=== PATIENT | male | born 1960 | race Caucasian/White ===

== ENCOUNTER 2019-05-19 16:55 | Emergency (ER) | payer OTHER ==
[2019-05-19] MEDS ORDERED: Morphine 4 MG/ML VIAL (1 ml) 4 MG/ML VIAL IV ONE ×2 (17:59→20:24)
[2019-05-19] MEDS ORDERED: Tetan/Diph/Pertus SYR(Tdap)* 0.5 ML SYR(BOOSTRIX) use SYR IM ONE (18:11)
--- NOTE | 2019-05-19 18:12 | ED ---
Adult Trauma - HPI Summary HPI Summary: 59-year-old male presents after fall today. He was doing tree work. He states he fell off a ladder 5 feet and landed on his right ribs and shoulder. He states he got up and bumped his head on a door while ambulating into the house. He states has pain over right pectoral muscle. Denies any bowel pain. No neck pain. He states after he fell and got up and ended up hitting his head on door frame. Denies any loss consciousness. Denies any headache. no abdominal pain. He has abrasions noted to the knees and ankles. No knee or ankle pain. No other symptoms. He is a smoker. has no medical conditions - History of Current Complaint Chief Complaint: EDTraumaMultiple Stated Complaint: FALL PER EMS Time Seen by Provider: 05/19/19 17:33 Pain Intensity: 7 - Allergy/Home Medications Allergies/Adverse Reactions: Allergies Allergy/AdvReac Type Severity Reaction Status Date / Time No Known Allergies Allergy Verified 05/19/19 17:07 Home Medications: Home Medications NK [No Home Medications Reported] 05/19/19 [History Confirmed 05/19/19] PMH/Surg Hx/FS Hx/Imm Hx Endocrine/Hematology History: Denies: Hx Anticoagulant Therapy Cardiovascular History: Denies: Hx Myocardial Infarction Infectious Disease History: No Infectious Disease History: Denies: Traveled Outside the [place] in Last 30 Days - Family History Known Family History: Positive: Non-Contributory - Social History Alcohol Use: Occasionally Substance Use Type: Reports: None Smoking Status (MU): Current Some Day Smoker Review of Systems Negative: Fever Positive: Chest Pain Positive: Shortness Of Breath. Negative: Cough Negative: Abdominal Pain Positive: Myalgia - right shoulder pain All Other Systems Reviewed And Are Negative: Yes Physical Exam Triage Information Reviewed: Yes Vital Signs On Initial Exam: Initial Vitals Temp Pulse Resp BP Pulse Ox 97.4 F 66 34 167/106 96 05/19/19 16:58 05/19/19 16:58 05/19/19 16:58 05/19/19 16:58 05/19/19 16:58 Vital Signs Reviewed: Yes Appearance: Positive: Well-Appearing Skin: Positive: Warm, Dry, Other - multiple abrasions to knee and ankle Head/Face: Positive: Normal Head/Face Inspection Eyes: Positive: Normal, EOMI, YIN, Conjunctiva Clear ENT: Positive: Pharynx normal, TMs normal Respiratory/Lung Sounds: Positive: Breath Sounds Present, Other - tenderness right ribs, no flail chest Cardiovascular: Positive: Normal, RRR Abdomen Description: Positive: Nontender, Soft Bowel Sounds: Positive: Present Musculoskeletal: Positive: Limited @ - right arm, Other - tenderness over right shoulder and ribs, good pulses, nontender knees and ankle, nontender hip Neurological: Positive: Normal, Sensory/Motor Intact, Alert, Oriented to Person Place, Time, CN Intact II-III Psychiatric: Positive: Normal Procedures - Laceration/Wound Repair 1 Location: Other - right leg Description: Linear Length, Depth and Shape: 2 parallel laceration 3cm by 1/4cm Irrigated w/ Saline (ccs): 300 Suture Type: Prolene Number of Sutures: 3 Diagnostics - Vital Signs Vital Signs Temp Pulse Resp BP Pulse Ox 05/19/19 17:00 70 22 96 05/19/19 16:59 67 23 167/106 96 05/19/19 16:58 97.4 F 65 31 167/106 96 - Laboratory Result Diagrams: 05/19/19 18:05 05/19/19 18:04 Lab Statement: Any lab studies that have been ordered have been reviewed, and results considered in the medical decision making process. - Radiology shoulder Radiology Interpretation Completed By: ED Physician Summary of Radiographic Findings: scapula fracture - CT brain CT Interpretation Completed By: Radiologist Summary of CT Findings: IMPRESSION: 1. There is likely chronic left maxillary sinusitis. 2. There is age-related diffuse cerebral and cerebellar volume loss and chronic. microvascular ischemic disease. 3. No acute intracranial pathology. neck CT Interpretation Completed By: Radiologist Summary of CT Findings: IMPRESSION: 1. Findings in the upper chest including rib fractures and right clavicle and. scapular fractures and soft tissue emphysema of the right chest wall it extends. into the base of the right neck are described on the CT chest dictation of the. same day. 2. No acute cervical spine fracture. chest, abd CT Interpretation Completed By: Radiologist Summary of CT Findings: IMPRESSION: 1. There are acute fractures involving the right clavicle, body of the right. scapula, right first, second, third, fourth , fifth, sixth, seventh, eighth,. ninth ribs. 2. There is a small anterior pneumothorax extending from the right apex of the. right base occupying approximately 5-10% of the volume of the right hemithorax. without signs of tension pneumothorax. 3. There is small hemothorax on the right. There is bibasilar and bilateral. dependent atelectatic change or scarring but cannot exclude dependent pulmonary. contusions. - EKG No standard instances Cardiac Rate: NL EKG Rhythm: Sinus Rhythm Summary of EKG Findings: sinus rhythm Re-Evaluation - Re-Evaluation First Eval Re-Evaluation Time: 19:10 Comment: denies any sob, o2 stat 99 Adult Trauma Course/Dx - Course Course Of Treatment: 59-year-old male presents after fall today. He states he fell off a ladder 5 feet and landed on his right ribs and shoulder. no headache or neck pain. Denies any loss consciousness. He has abrasions noted to the knees and ankles. states can not take a deep breath due to pain but denies any sob. on exam equal breath sounds. tenderness over right shoulder and ribs. no flail chest. vitals stable. ekg sinus rhythm. nontender abd. nontender neck. normal neuro exam. xray shows scaupla fracture. CT brain normal. CT neck shows no acute findings. CT chest shows rib fracture 1-9, scapula fracture, small pneumothoraic, hemothorax. spoke with josé luis who recommends chest tube and accepts for transfer. discussed with dr arnold who will do chest tube. ambulance service called and said cannot transfer with chest tube unless nursing available and we do not have nurse available at this time so will have to transfer without such. - Diagnoses Differential Diagnosis/HQI/PQRI: Positive: Abrasion(s), Contusion(s), Fracture Provider Diagnoses: Right scapula fracture, Ribs, multiple fractures, Pneumothorax, Hemothorax, Clavicle fracture, Laceration of right lower leg - Critical Care Time Critical Care Time: 30-74 min - 60 mins Discharge - Sign-Out/Discharge Documenting (check all that apply): Patient Departure - Discharge Plan Condition: Stable Disposition: TRANS HIGHER LVL OF CARE FAC Referrals: No Primary Care Phys,NOPCP [Primary Care Provider] - - Billing Disposition and Condition Condition: STABLE Disposition: Trans Higher Lvl of Care Fac
[2019-05-19] MEDS ORDERED: Ondansetron INJ* 2 MG/ML VIAL IV ONE (18:16)
[2019-05-19 18:27] LABS: ABS Lymphocytes 1.6 10^3/ul (1.0-4.8); ABS Monocytes 1.3 10^3/ul (0-0.8); ABS Neutrophils 16.9 10^3/ul (1.5-7.7); Eosinophil % 0.2 %; Hematocrit 46 % (42-52); Hemoglobin 15.5 g/dL (14.0-18.0); Lymphocyte % 8.1 %; Mean Corpuscular HGB Conc 34 g/dL (31-36); Mean Corpuscular Hemoglobin 32 pg (27-31); Mean Corpuscular Volume 95 fL (80-94); Platelet Count 231 10^3/uL (150-450); Red Blood Count 4.81 10^6 /uL (4.18-5.48); Red Cell Distribution Width 14 % (10-15); White Blood Count 19.9 10^3/uL (3.5-10.8)
[2019-05-19] MEDS ORDERED: Iodixanol* (CONTRAST) 320 MG/ML 100 ML SDV IV ONE (18:35)
[2019-05-19 18:43] LABS: Albumin 4.4 g/dL (3.2-5.2); Albumin/Globulin Ratio 1.5 (1-3); BUN/Creatinine Ratio 22.9 (8-20); Calcium 9.3 mg/dL (8.6-10.3); EGFR African American 87.2 (>60); Globulin 2.9 g/dL (2-4); Total Bilirubin 0.4 mg/dL (0.2-1.0); Total Protein 7.3 g/dL (6.4-8.9)
[2019-05-19] MEDS ORDERED: NS 0.9% 1000 ML** 1,000 ML IV ONE (18:49)
[2019-05-19 19:02] LABS: Potassium 3.8 mmol/L (3.5-5.0)
[2019-05-19] MEDS ORDERED: Lidocaine 1% MPF ** 5 ML VIAL ONE (19:56)
[2019-05-19] MEDS ORDERED: HYDROmorphone INJ1* 1 MG/ML SYRINGE IV ONE (20:17)
[2019-05-19 20:40] VITALS: BP 175/100
== END 2019-05-19 20:38 | disposition short-term general hospital (02) ==
LOC: ED 16:55
DX: S42.101A Fracture of unspecified part of scapula, right shoulder, initial encounter for closed fracture (principal); S42.001A Fracture of unspecified part of right clavicle, initial encounter for closed fracture; S22.41XA Multiple fractures of ribs, right side, initial encounter for closed fracture; J93.9 Pneumothorax, unspecified; S27.1XXA Traumatic hemothorax, initial encounter; S81.811A Laceration without foreign body, right lower leg, initial encounter; Z23 Encounter for immunization; W11.XXXA Fall on and from ladder, initial encounter; Y93.H2 Activity, gardening and landscaping; Y92.9 Unspecified place or not applicable; Y99.0 Civilian activity done for income or pay; F17.210 Nicotine dependence, cigarettes, uncomplicated
CPT/HCPCS: 12002; 36415; 70450; 71045; 71260; 72125; 74177; 80053; 85025; 86850; 86900; 86901; 90471; 90715; 93005; 96361; 96374; 96375; 96376; 99285; J1170; J2270; J2405; Q9967

== ENCOUNTER 2023-10-26 18:35 | Inpatient (IN) ==
[2023-10-26 19:10] LABS: Hematocrit 41.8 % (38-53); Hemoglobin 14.5 g/dL (13.2-16.3); Mean Corpuscular Hemoglobin 32.6 pg (27-33); Mean Corpuscular Hgb Conc 34.7 g/dL (31-36); Mean Corpuscular Volume 93.8 fL (80-97); Mean Platelet Volume 8.4 fL (7.5-11.2); Platelet Count 307 10^3/uL (150-450); Red Blood Count 4.45 10^6/uL (4.06-5.63); Red Cell Distribution Width 13.8 % (12-17); White Blood Count 15.5 10^3/uL (3.6-10.2)
[2023-10-26 19:15] LABS: INR 1.25 (0.83-1.13)
[2023-10-26 19:28] LABS: ALT 52 U/L (7-52); AST 151 U/L (13-39); Albumin 4.1 g/dL (3.2-5.2); Albumin/Globulin Ratio 1.3 (1-3); Alkaline Phosphatase 50 U/L (35-149); Anion Gap 7 mmol/L (2-16); Blood Urea Nitrogen 17 mg/dL (6-24); CO2 Carbon Dioxide 26 mmol/L (22-32); Calcium 9.1 mg/dL (8.6-10.3); Chloride 98 mmol/L (101-111); Creatinine, Serum 0.92 mg/dL (0.67-1.17); Globulin 3.2 g/dL (2-4); Glucose 120 mg/dL (70-100); Potassium 3.7 mmol/L (3.5-5.0); Sodium 131 mmol/L (135-145); Total Protein 7.3 g/dL (6.4-8.9); eGFR CKD-EPI 92.9 (>60)
[2023-10-26 19:34] LABS: ABS Basophils 0.1 10^3/uL (0.0-0.1); ABS Lymphocytes 2.2 10^3/uL (1.0-4.8); ABS Monocytes 1.8 10^3/uL (0.0-1.1); ABS Neutrophils 11.4 10^3/uL (1.5-7.6); ABS Nucleated RBC 0.01 10^3/ul; Eosinophil % 0.2 %
[2023-10-26 19:46] LABS: High Sens Troponin Baseline >24000 pg/mL (<20)
[2023-10-26 19:48] LABS: CRP High Sensitivity > 80.00 mg/L (<2.00)
[2023-10-26] MEDS ORDERED: Heparin DRIP 25,000 UNITS BAG 25,000 UNITS/250 ML BAG IV SCH (20:15)
[2023-10-26 20:27] LABS: High Sensitivity Troponin 1 Hr > 24000 pg/mL (<20)
[2023-10-26] MEDS ORDERED: Heparin 5000 UNITS/ML 1 mL VIAL IV SCH (21:00)
[2023-10-26 21:33] LABS: Erythrocyte Sed Rate 30 mm/Hr (0-19)
[2023-10-26 22:02] LABS: Hematocrit 40.5 % (38-53); Hemoglobin 13.8 g/dL (13.2-16.3); Mean Corpuscular Hemoglobin 32.1 pg (27-33); Mean Corpuscular Hgb Conc 34.1 g/dL (31-36); Mean Corpuscular Volume 94.3 fL (80-97); Mean Platelet Volume 8.3 fL (7.5-11.2); Platelet Count 296 10^3/uL (150-450); Red Cell Distribution Width 13.7 % (12-17); White Blood Count 14.6 10^3/uL (3.6-10.2)
[2023-10-26 22:14] LABS: ABS Basophils 0.1 10^3/uL (0.0-0.1); ABS Lymphocytes 1.7 10^3/uL (1.0-4.8); ABS Monocytes 1.7 10^3/uL (0.0-1.1); ABS Neutrophils 11.1 10^3/uL (1.5-7.6); ABS Nucleated RBC 0.01 10^3/ul; Eosinophil % 0.2 %; Lymphocyte % 11.4 %; Nucleated Red Blood Cells % 0.1 %/100WBC (0.0-0.8)
[2023-10-26 22:18] LABS: Creatinine, Serum 0.94 mg/dL (0.67-1.17); eGFR CKD-EPI 90.5 (>60)
[2023-10-27 04:30] LABS: ABS Basophils 0.1 10^3/uL (0.0-0.1); ABS Eosinophils 0.1 10^3/uL (0.0-0.5); ABS Lymphocytes 2.2 10^3/uL (1.0-4.8); ABS Monocytes 1.4 10^3/uL (0.0-1.1); ABS Neutrophils 8.9 10^3/uL (1.5-7.6); Eosinophil % 0.8 %; Hematocrit 39.2 % (38-53); Hemoglobin 13.5 g/dL (13.2-16.3); Lymphocyte % 17.5 %; Mean Corpuscular Hemoglobin 32.3 pg (27-33); Mean Corpuscular Hgb Conc 34.4 g/dL (31-36); Mean Platelet Volume 8.3 fL (7.5-11.2); Platelet Count 272 10^3/uL (150-450); Red Blood Count 4.17 10^6/uL (4.06-5.63); Red Cell Distribution Width 13.7 % (12-17); White Blood Count 12.8 10^3/uL (3.6-10.2)
[2023-10-27 04:47] LABS: Calcium 8.4 mg/dL (8.6-10.3); Creatinine, Serum 1.02 mg/dL (0.67-1.17); Magnesium 1.8 mg/dL (1.9-2.7); Potassium 3.4 mmol/L (3.5-5.0); eGFR CKD-EPI 82.1 (>60)
[2023-10-27] MEDS ORDERED: Potassium EFFERVES 25 meq TAB PO ONE (07:18)
[2023-10-27] MEDS: KCL 10 MEQ/50 ML IVPREMIX 10 MEQ/50 ML BAG IV SCH ×2 (08:24→12:04)
[2023-10-27] MEDS ORDERED: Magnesium Sulfate IV 1GM/100ML 1 GM/100 ML BAG IV ONE (09:22)
[2023-10-27 10:50] LABS: High Sensitivity Troponin 1 Hr 15607 pg/mL (<20)
[2023-10-27] MEDS ORDERED: VERAPAMIL 2.5 MG/ML 2 ML VIAL ** 5 mg/2 ml ONE (13:25)
[2023-10-27] MEDS ORDERED: Heparin 2 UNITS/ML 1000 mls 3,000 ML IV ONE (13:26)
[2023-10-27] MEDS ORDERED: Heparin 1,000 UNIT/ML 10 ml (10,000 UNITS) CATHLAB/DIALYSIS ONE (13:26)
[2023-10-27] MEDS ORDERED: nitroGLYCERIN DRIP 25,000 MCG/250 ML BTL ONE (13:26)
[2023-10-27] MEDS ORDERED: Iohexol 350 (CONTRAST) 200 ML MDV IV ONE (13:26)
[2023-10-27] MEDS ORDERED: Lidocaine 1% MPF 5 ML VIAL ONE (13:26)
[2023-10-27] MEDS ORDERED: Midazolam 5 mg/5 ml VIAL 1 mg/ml 5 ml VIAL (5 mg) ONE (13:45)
[2023-10-27] MEDS ORDERED: fentaNYL 100 mcg/2 ml 50 MCG/ML VIAL ONE (13:46)
[2023-10-27] MEDS ORDERED: Bivalirudin 250 MG VIAL ONE (14:04)
[2023-10-27] MEDS ORDERED: NS 0.9% 1000 ml BAG 1,000 ML IV SCH (15:45)
[2023-10-27 18:02] LABS: HDL Cholesterol 52.3 mg/dL
[2023-10-27] MEDS ORDERED: Potassium Chlor 20 meq TAB.ER PO ONE (19:57)
[2023-10-28 04:39] LABS: ABS Basophils 0.1 10^3/uL (0.0-0.1); ABS Eosinophils 0.1 10^3/uL (0.0-0.5); ABS Lymphocytes 1.6 10^3/uL (1.0-4.8); ABS Monocytes 1.3 10^3/uL (0.0-1.1); ABS Neutrophils 9.2 10^3/uL (1.5-7.6); ABS Nucleated RBC 0.01 10^3/ul; Eosinophil % 0.7 %; Hematocrit 38.4 % (38-53); Hemoglobin 13.1 g/dL (13.2-16.3); Lymphocyte % 13.2 %; Mean Corpuscular Hemoglobin 32.1 pg (27-33); Mean Corpuscular Hgb Conc 34.1 g/dL (31-36); Mean Corpuscular Volume 94.1 fL (80-97); Mean Platelet Volume 8.8 fL (7.5-11.2); Platelet Count 281 10^3/uL (150-450); Red Blood Count 4.08 10^6/uL (4.06-5.63); Red Cell Distribution Width 13.8 % (12-17); White Blood Count 12.2 10^3/uL (3.6-10.2)
[2023-10-28 04:56] LABS: Calcium 8.4 mg/dL (8.6-10.3); Creatinine, Serum 0.88 mg/dL (0.67-1.17); Magnesium 2.1 mg/dL (1.9-2.7)
[2023-10-28 06:11] LABS: High Sensitivity Troponin 1 Hr 17441 pg/mL (<20)
[2023-10-28] MEDS ORDERED: fentaNYL 100 mcg/2 ml 50 MCG/ML VIAL ONE (07:44)
[2023-10-28] MEDS ORDERED: Midazolam 5 mg/5 ml VIAL 1 mg/ml 5 ml VIAL (5 mg) ONE (07:44)
[2023-10-28] MEDS ORDERED: Iohexol 350 (CONTRAST) 200 ML MDV IV ONE (07:45)
[2023-10-28] MEDS ORDERED: Heparin 2 UNITS/ML 1000 mls 3,000 ML IV ONE (07:45)
[2023-10-28] MEDS ORDERED: Heparin 1,000 UNIT/ML 10 ml (10,000 UNITS) CATHLAB/DIALYSIS ONE (07:45)
[2023-10-28] MEDS ORDERED: VERAPAMIL 2.5 MG/ML 2 ML VIAL ** 5 mg/2 ml ONE (07:45)
[2023-10-28] MEDS ORDERED: nitroGLYCERIN DRIP 25,000 MCG/250 ML BTL ONE (07:45)
[2023-10-28] MEDS ORDERED: Lidocaine 1% MPF 5 ML VIAL ONE (07:46)
[2023-10-28] MEDS ORDERED: niCARdipine 0.1MG/ML IVPREMIX 0 MG/0 ML BAG IV ONE (07:46)
[2023-10-28] MEDS ORDERED: Morphine 4 MG/ML VIAL (1 ml) ONE (09:26)
[2023-10-28] MEDS: Morphine 2 MG/ML SYRINGE IV PRN ×2 (09:30→13:19)
[2023-10-28] MEDS: CMC:DAPAGLIFLOZIN 10 MG TAB (NF) PO SCH (10:52)
[2023-10-28] MEDS: NS 0.9% 1000 ml BAG 1,000 ML IV SCH ×2 (10:53→21:30)
[2023-10-29 04:44] LABS: ABS Basophils 0.1 10^3/uL (0.0-0.1); ABS Eosinophils 0.2 10^3/uL (0.0-0.5); ABS Lymphocytes 1.3 10^3/uL (1.0-4.8); ABS Monocytes 1.3 10^3/uL (0.0-1.1); ABS Neutrophils 10.9 10^3/uL (1.5-7.6); Eosinophil % 1.6 %; Hematocrit 35.8 % (38-53); Hemoglobin 12.4 g/dL (13.2-16.3); Lymphocyte % 9.1 %; Mean Corpuscular Hemoglobin 32.7 pg (27-33); Mean Corpuscular Hgb Conc 34.6 g/dL (31-36); Mean Corpuscular Volume 94.3 fL (80-97); Mean Platelet Volume 8.6 fL (7.5-11.2); Platelet Count 268 10^3/uL (150-450); Red Blood Count 3.79 10^6/uL (4.06-5.63); Red Cell Distribution Width 13.4 % (12-17); White Blood Count 13.7 10^3/uL (3.6-10.2)
[2023-10-29 04:55] LABS: Calcium 8.2 mg/dL (8.6-10.3); Creatinine, Serum 0.86 mg/dL (0.67-1.17); Magnesium 1.9 mg/dL (1.9-2.7); Potassium 3.9 mmol/L (3.5-5.0); eGFR CKD-EPI 96.7 (>60)
[2023-10-29] MEDS: NS 0.9% 1000 ml BAG 1,000 ML IV SCH (06:55)
[2023-10-29] MEDS: CMC:DAPAGLIFLOZIN 10 MG TAB (NF) PO SCH (08:36)
[2023-10-29] MEDS ORDERED: Polyethylene Glycol 3350 17 GM PACKET PO PRN (09:36)
[2023-10-30 08:01] LABS: ABS Eosinophils 0.5 10^3/uL (0.0-0.5); ABS Lymphocytes 1.2 10^3/uL (1.0-4.8); ABS Neutrophils 6.3 10^3/uL (1.5-7.6); Eosinophil % 5.3 %; Hematocrit 39.6 % (38-53); Hemoglobin 13.6 g/dL (13.2-16.3); Lymphocyte % 13.1 %; Mean Corpuscular Hemoglobin 32.5 pg (27-33); Mean Corpuscular Hgb Conc 34.4 g/dL (31-36); Mean Corpuscular Volume 94.3 fL (80-97); Mean Platelet Volume 8.9 fL (7.5-11.2); Platelet Count 309 10^3/uL (150-450); Red Blood Count 4.19 10^6/uL (4.06-5.63); Red Cell Distribution Width 13.7 % (12-17); White Blood Count 8.9 10^3/uL (3.6-10.2)
[2023-10-30 08:09] LABS: Calcium 8.8 mg/dL (8.6-10.3); Potassium 4.1 mmol/L (3.5-5.0)
[2023-10-30] MEDS: CMC:DAPAGLIFLOZIN 10 MG TAB (NF) PO SCH (08:28)
[2023-10-30 13:59] VITALS: BP 118/78
== END 2023-10-30 15:12 | disposition home or self-care (01) | DRG 322 ==
LOC: ED 18:35 → EDHOLD 20:34 → SUATTDRO 20:34 → MEDTELE 10-27 09:38 → ICU 10-27 16:00 → MEDTELE 10-29 19:58
PROVIDERS: ADMIT Student in an Organized Health Care Education/Training Program; ATTEND Internal Medicine

== ENCOUNTER 2024-09-14 11:46 | Observation (INO) ==
[2024-09-14] MEDS: fentaNYL 100 mcg/2 ml 50 MCG/ML VIAL IV SLOW PU ONE ×2 (13:33→17:40)
[2024-09-14] MEDS: Metoclopramide 5 MG/ML VIAL (10 mg) IV SLOW PU ONE (13:33)
[2024-09-14] MEDS: Lactated Ringers 1000 ml BAG IV.FLUID IV ONE ×2 (13:33→18:21)
[2024-09-14 13:39] LABS: ABS Basophils 0.1 10^3/uL (0.0-0.1); ABS Eosinophils 0.1 10^3/uL (0.0-0.5); ABS Lymphocytes 1.8 10^3/uL (1.0-4.8); ABS Monocytes 1.3 10^3/uL (0.0-1.1); Eosinophil % 0.8 %; Hematocrit 46.2 % (38-53); Hemoglobin 15.9 g/dL (13.2-16.3); Lymphocyte % 13.7 %; Mean Corpuscular Hemoglobin 33.5 pg (27-33); Mean Corpuscular Hgb Conc 34.4 g/dL (31-36); Mean Corpuscular Volume 97.4 fL (80-97); Mean Platelet Volume 8.9 fL (7.5-11.2); Platelet Count 254 10^3/uL (150-450); Red Blood Count 4.74 10^6/uL (4.06-5.63); White Blood Count 13.2 10^3/uL (3.6-10.2)
[2024-09-14 13:48] LABS: Urine Appearance Clear; Urine Bacteria Absent /HPF (Absent); Urine Bilirubin Negative (Negative); Urine Blood 1+ (Negative); Urine Color Yellow; Urine Glucose 4+ (>=1000 mg/dL) (Negative); Urine Ketones Trace (Negative); Urine Nitrite Negative (Negative); Urine Protein Negative (Negative); Urine Red Blood Cell 1+(3-5/hpf) /HPF (0-Trace); Urine Squamous Epithelial Cell Present /HPF (Absent); Urine Urobilinogen Negative (Negative); Urine White Blood Cell Trace(0-5/hpf) /HPF (0-Trace); Urine pH 5.5 (5.0-8.0)
[2024-09-14 14:29] LABS: Albumin 4.1 g/dL (3.2-5.2); Albumin/Globulin Ratio 2.1 (1-3); Calcium 9.2 mg/dL (8.6-10.3); Creatinine, Serum 0.93 mg/dL (0.67-1.17); Potassium 4.2 mmol/L (3.5-5.0); Total Bilirubin 1.4 mg/dL (0.2-1.0); Total Protein 6.1 g/dL (6.4-8.9); eGFR CKD-EPI 91.1 (>60)
[2024-09-14] MEDS: Iohexol 350 (CONTRAST) 500 ML MDV IV ONE (14:43)
[2024-09-14 15:04] LABS: High Sensitivity Troponin 1 Hr 7 pg/mL (<20)
[2024-09-14] MEDS: Piperacillin/Tazobac 3.375 BAG 3.375 GM/100 ML BAG IV ONE (17:40)
[2024-09-14] MEDS: cefTRIAXone 2 gm/50 mL D5W 2 GM/50 ML BAG IV SCH (23:22)
[2024-09-15] MEDS ORDERED: Ondansetron ODT 4 mg TAB 4 MG TAB SL PRN (05:28)
[2024-09-15 06:38] LABS: ABS Eosinophils 0.2 10^3/uL (0.0-0.5); ABS Lymphocytes 1.7 10^3/uL (1.0-4.8); ABS Monocytes 0.8 10^3/uL (0.0-1.1); ABS Neutrophils 6.2 10^3/uL (1.5-7.6); ABS Nucleated RBC 0.01 10^3/ul; Hematocrit 41.3 % (38-53); Hemoglobin 14.1 g/dL (13.2-16.3); Lymphocyte % 18.9 %; Mean Corpuscular Hemoglobin 33.1 pg (27-33); Mean Corpuscular Hgb Conc 34.1 g/dL (31-36); Mean Corpuscular Volume 97.2 fL (80-97); Mean Platelet Volume 9.3 fL (7.5-11.2); Nucleated Red Blood Cells % 0.1 %/100WBC (0.0-0.8); Platelet Count 232 10^3/uL (150-450); Red Blood Count 4.25 10^6/uL (4.06-5.63); Red Cell Distribution Width 14.8 % (12-17); White Blood Count 8.9 10^3/uL (3.6-10.2)
[2024-09-15 06:51] LABS: Calcium 8.4 mg/dL (8.6-10.3); Creatinine, Serum 0.93 mg/dL (0.67-1.17); Potassium 3.8 mmol/L (3.5-5.0); eGFR CKD-EPI 91.1 (>60)
[2024-09-15] MEDS: metroNIDAZOLE IV 500 MG/100ML 500 MG/100 ML BAG IVPB SCH (07:34)
[2024-09-15] MEDS ORDERED: CMCS:DAPAGLIFLOZIN 10 MG TAB (NF) PO SCH (09:00)
[2024-09-15] MEDS: Cholecalciferol (VIT D3) 1,000 unit TAB PO SCH (10:45)
[2024-09-15 11:09] LABS: Albumin 3.5 g/dL (3.2-5.2); Albumin/Globulin Ratio 1.9 (1-3); Direct Bilirubin 0.3 mg/dL (0.03-0.18); Globulin 1.8 g/dL (2-4); Indirect Bilirubin 0.9 mg/dL (0.3-1.0); Total Bilirubin 1.2 mg/dL (0.2-1.0); Total Protein 5.3 g/dL (6.4-8.9)
[2024-09-16 06:47] LABS: ALT 50 U/L (7-52); Albumin 3.5 g/dL (3.2-5.2); Albumin/Globulin Ratio 1.7 (1-3); Alkaline Phosphatase 64 U/L (35-149); Anion Gap 8 mmol/L (2-16); Blood Urea Nitrogen 18 mg/dL (6-24); CO2 Carbon Dioxide 23 mmol/L (22-32); Calcium 8.4 mg/dL (8.6-10.3); Chloride 103 mmol/L (101-111); Creatinine, Serum 0.92 mg/dL (0.67-1.17); Globulin 2.1 g/dL (2-4); Glucose 94 mg/dL (70-100); Sodium 134 mmol/L (135-145); Total Bilirubin 0.7 mg/dL (0.2-1.0); Total Protein 5.6 g/dL (6.4-8.9); eGFR CKD-EPI 92.3 (>60)
[2024-09-16 07:04] LABS: ABS Eosinophils 0.3 10^3/uL (0.0-0.5); ABS Lymphocytes 1.5 10^3/uL (1.0-4.8); ABS Monocytes 0.7 10^3/uL (0.0-1.1); ABS Neutrophils 3.8 10^3/uL (1.5-7.6); Eosinophil % 4.2 %; Mean Corpuscular Hemoglobin 33.8 pg (27-33); Mean Corpuscular Hgb Conc 34.1 g/dL (31-36); Mean Platelet Volume 9.7 fL (7.5-11.2); Platelet Count 212 10^3/uL (150-450); Red Blood Count 4.14 10^6/uL (4.06-5.63); Red Cell Distribution Width 15.1 % (12-17); White Blood Count 6.2 10^3/uL (3.6-10.2)
[2024-09-16] MEDS ORDERED: Sulfur Hexaflouride MICROSPHR 25 MG VIAL IV PRN (14:49)
[2024-09-17 06:04] LABS: ABS Eosinophils 0.3 10^3/uL (0.0-0.5); ABS Lymphocytes 1.4 10^3/uL (1.0-4.8); ABS Monocytes 0.7 10^3/uL (0.0-1.1); ABS Neutrophils 3.4 10^3/uL (1.5-7.6); Eosinophil % 4.8 %; Lymphocyte % 24.3 %; Mean Corpuscular Hemoglobin 33.7 pg (27-33); Mean Corpuscular Volume 96.1 fL (80-97); Mean Platelet Volume 9.3 fL (7.5-11.2); Platelet Count 237 10^3/uL (150-450); Red Blood Count 4.16 10^6/uL (4.06-5.63); Red Cell Distribution Width 14.6 % (12-17); White Blood Count 5.9 10^3/uL (3.6-10.2)
[2024-09-17 07:06] LABS: Albumin 3.5 g/dL (3.2-5.2); Albumin/Globulin Ratio 1.8 (1-3); Calcium 8.5 mg/dL (8.6-10.3); Creatinine, Serum 0.85 mg/dL (0.67-1.17); Globulin 1.9 g/dL (2-4); Total Bilirubin 0.4 mg/dL (0.2-1.0); Total Protein 5.4 g/dL (6.4-8.9); eGFR CKD-EPI 96.4 (>60)
[2024-09-17 14:37] VITALS: BP 123/76
== END 2024-09-17 15:00 | disposition home or self-care (01) ==
LOC: ED 11:46 → INTOOBSV 20:00 → EDHOLD 20:00 → SUATTDRO 20:00 → MEDTELE 22:36
PROVIDERS: ADMIT Internal Medicine; ATTEND Student in an Organized Health Care Education/Training Program